=== PATIENT | male | born 1940 | race African-American/Black ===

== ENCOUNTER 2020-06-12 08:34 | Emergency (ER) | payer OTHER ==
[~2020-06-12] VITALS: Ht 177.8 cm; Wt 80.3 kg
[~2020-06-12 08:34] MED LIST: AMARYL4 MG PO; IRON325 PO; LISINOPRIL40 MG PO; NORVASC 5 MG TAB5 MG PO; NORVASC10 MG PO; SIMVASTATIN20 MG PO; TAMSULOSIN HCL0.4 MG PO
--- NOTE | 2020-06-12 10:50 | EKG ---
[facility] [place] [address] ELECTROCARDIOGRAM REPORT Name: JAENE CIFUENTES Room #: REG [facility]#: [id number] Admission: 06/12/20 Attend Phys: Discharge: Date of : 40 Report #: [id number] THIS REPORT FOR: cc: FAM - Family physician unknown FAM - Family physician unknown Cyril Gaitan MD [facility] ~ THIS REPORT FOR: //name// [facility] ED Test Date: 2020-06-12 Test Time: 08:50:58 Pat Name: JANEE CIFUENTES Department: Room: Gender: M [employer]ice: [place] : 1940 Requested By: Bruce Moody Order Number: [id number] MD: Cyril Gaitan Measurements Intervals [place] Rate: 61 P: 0 NH: 203 QRS: 1 QRSD: 87 T: 9 QT: 409 QTc: 412 Interpretive Statements Sinus rhythm Nonspecific T abnormalities, anterior leads Baseline wander in lead(s) V4 No previous ECG available for comparison Electronically Signed On 06-12-2020 10:50:38 CDT by Cyril Gaitan [email or web address] <ELECTRONICALLY SIGNED> By: Cyril Gaitan MD, FACC 06/12/20 1050 9 Cyril Gaitan MD, FAC /EPI
[2020-06-12 11:03] LABS: ABSOLUTE NEUTROPHILS 1.9 thou/uL (1.4-8.2); BASOPHILS 1.5 % (0.0-2.0); EOSINOPHILS 4.1 % (0.0-3.0); HEMATOCRIT 22.6 % (42.0-52.0); HEMOGLOBIN 7.7 gm/dL (14.0-18.0); LYMPHOCYTES 26.9 % (24.0-44.0); MCHC 33.8 g/dL (28.0-37.0); MCV 88.7 fL (80.0-100.0); MONOCYTES 6.4 % (1.0-8.0); POLYS 61.1 % (36.0-66.0); RBC 2.55 mil/uL (4.50-6.00); RDW 16.9 % (10.5-14.5); WBC 3.1 thou/uL (4.0-11.0)
[2020-06-12 11:20] LABS: ANION GAP 8 mmol/L (7-16); BUN 72 mg/dL (7-18); CALCIUM 8.6 mg/dL (8.5-10.1); CHLORIDE 101 mmol/L (98-107); CO2 26 mmol/L (21-32); CREATININE 11.4 mg/dL (0.7-1.3); GLUCOSE 132 mg/dL (74-106); SODIUM 135 mmol/L (136-145)
[2020-06-12 11:23] LABS: POTASSIUM 6.1 mmol/L (3.5-5.1)
[2020-06-12 11:28] LABS: TROPONIN-I <0.06 ng/mL (<0.06)
[2020-06-12 12:38] LABS: ANISOCYTOSIS 2+; PLATELET COUNT 60 thou/uL (150-400); PLATELET ESTIMATE DECREASED
[2020-06-12 14:29] VITALS: BP 143/63
== END 2020-06-12 14:30 ==
LOC: ER 08:34
PROVIDERS: Emergency Medicine
DX: R06.02 Shortness of breath (principal); I10 Essential (primary) hypertension; E11.9 Type 2 diabetes mellitus without complications; F17.210 Nicotine dependence, cigarettes, uncomplicated; Z79.899 Other long term (current) drug therapy; Z91.09 Other allergy status, other than to drugs and biological substances; Z20.828 Contact with and (suspected) exposure to other viral communicable diseases